=== PATIENT | male | born 1970 | race African-American/Black ===

== ENCOUNTER 2019-02-07 20:21 | Emergency (ER) | payer MEDICARE ==
--- NOTE | 2019-02-07 20:23 | ER Report ---
History and Physical Time Seen By MD: 20:23 HPI/ROS CHIEF COMPLAINT: Fall HISTORY OF PRESENT ILLNESS: Patient is a 48-year-old male here with complaints of right-sided lower extremity pain, right upper extremity pain after falling while getting out of his truck. Patient also complains of feeling lethargic, weak, he also admits to having significant right lower extremity infection which she is on cefepime for currently. There is no obvious bony deformity at time of evaluation however patient complains of severe pain from shoulder to distal extremity, hip to distal extremity. REVIEW OF SYSTEMS: Constitutional: No fever, no chills. Eyes: No discharge. ENT: No sore throat. Cardiovascular: No chest pain, no palpitations. Respiratory: No cough, no shortness of breath. Gastrointestinal: No abdominal pain, no vomiting. Genitourinary: No hematuria. Musculoskeletal: + Right upper extremity and right lower extremity pain without bony deformity, + prior amputation of the left lower external Skin: No rashes. Neurological: No focal neurological deficits Allergies: Coded Allergies: acetaminophen (Verified Allergy, Unknown, 02/07/19) hydrocodone (Verified Allergy, Unknown, 02/07/19) Home Meds Active Scripts Tramadol Hcl (TRAMADOL HCL) 50 Mg Tablet, 50 MG PO Q6H PRN for PAIN, #12 TAB 0 Refills Prov:VIDAL EASON Felisa DO 02/08/19 Reported Medications Clonidine HCl (Clonidine HCl ER) 0.1 Mg Tab.er.12h 02/07/19 Constitutional Vital Sign - Last 24 Hours 02/07/19 02/07/19 20:30 23:00 Temp 97.8 Pulse 86 89 Resp 17 14 B/P (MAP) 161/103 149/100 (116) Pulse Ox 89 88 O2 Delivery Room Air Room Air Physical Exam General Appearance: The patient is alert, has no immediate need for airway protection and no signs of toxicity. + mildly lethargic, oriented Eyes: Pupils equal and round no pallor or injection. ENT, Mouth: Mucous membranes are moist. Respiratory: There are no retractions, lungs are clear to auscultation. Cardiovascular: Regular rate and rhythm. Gastrointestinal: Abdomen is soft and non tender, no masses, bowel sounds normal. Neurological: No focal neurological deficits Skin: Warm and dry, no rashes. Musculoskeletal: Neck is supple non tender. + Prior left lower extremity amputation history, right lower extremity infections present but neurovascularly intact at time of evaluation complaining of tenderness on palpation of the right lower extremity and right upper extremity, no C-spine tenderness on palpation DIFFERENTIAL DIAGNOSIS: After history and physical exam differential diagnosis was considered for fracture, contusion, infection, electrolyte abnormality Medical Decision Making Data Points Result Diagram: 02/07/19212902/07/192129 Laboratory Hematology Test 02/07/19 20:40 02/07/19 21:30 Urine Color Yellow Urine Clarity Clear Urine pH 6.0 pH (4.8-9.5) Urine Specific [place] 1.032 Urine Protein 100 mg/dL (NEGATIVE) Urine Glucose (UA) 500 mg/dL (NEGATIVE) Urine Ketones Trace mg/dL (NEGATIVE) Urine Blood Small (NEGATIVE) Urine Nitrite Negative (NEGATIVE) Urine Bilirubin Negative (NEGATIVE) Urine Urobilinogen 2.0 mg/dL (0.2-1.9) Urine Leukocyte Esterase Negative (NEGATIVE) Urine RBC 14 /HPF (0-2/HPF) Urine WBC 2 /HPF (0-5/HPF) Urine Squamous Epithelial Cells None /LPF (</=FEW) Urine Bacteria Negative /HPF (NONE-FEW) Urine Hyaline Casts Few /LPF (NONE-FEW) Urine Mucus Few /HPF (NONE-FEW) Red Blood Count 4.32 M/uL (4.00-5.60) Mean Corpuscular Volume 86.3 fL (80.0-96.0) Mean Corpuscular Hemoglobin 28.2 pg (26.0-33.0) Mean Corpuscular Hemoglobin Concent 32.7 g/dL (32.0-36.0) Red Cell Distribution Width 15.5 % (11.5-14.5) Mean Platelet Volume 8.0 fL (7.2-11.1) Neutrophils (%) (Auto) 49.7 % (39.4-72.5) Lymphocytes (%) (Auto) 38.9 % (17.6-49.6) Monocytes (%) (Auto) 8.3 % (4.1-12.4) Eosinophils (%) (Auto) 2.4 % (0.4-6.7) Basophils (%) (Auto) 0.7 % (0.3-1.4) Nucleated RBC Relative Count (auto) 0.0 /100WBC Neutrophils # (Auto) 4.4 K/uL (2.0-7.4) Lymphocytes # (Auto) 3.5 K/uL (1.3-3.6) Monocytes # (Auto) 0.7 K/uL (0.3-1.0) Eosinophils # (Auto) 0.2 K/uL (0.0-0.5) Basophils # (Auto) 0.1 K/uL (0.0-0.1) Nucleated RBC Absolute Count (auto) 0.00 K/uL Prothrombin Time 13.7 seconds (12.0-14.4) Prothromb Time International Ratio 1.05 Activated Partial Thromboplast Time 31 seconds (23-35) Sodium Level 138 mmol/L (137-145) Potassium Level 3.0 mmol/L (3.5-5.0) Chloride Level 104 mmol/L (98-107) Carbon Dioxide Level 29 mmol/L (22-30) Blood Urea Nitrogen 14 mg/dl (9-21) Creatinine 0.70 mg/dl (0.66-1.25) Glomerular Filtration Rate Calc > 60.0 Random Glucose 247 mg/dl (75-110) Lactate 1.3 mmol/L (0.7-2.1) Calcium Level 9.4 mg/dl (8.4-10.2) Total Bilirubin 0.2 mg/dl (0.2-1.3) Aspartate Amino Transf (AST/SGOT) 30 U/L (0-35) Alanine Aminotransferase (ALT/SGPT) 30 U/L (0-56) Alkaline Phosphatase 134 U/L (0-126) Total Protein 7.9 g/dl (6.3-8.2) Albumin 3.6 g/dl (3.5-5.0) Lipase 60 U/L (23-300) Serum Alcohol < 10 mg/dl Chemistry Test 02/07/19 20:40 02/07/19 21:30 Urine Color Yellow Urine Clarity Clear Urine pH 6.0 pH (4.8-9.5) Urine Specific [place] 1.032 Urine Protein 100 mg/dL (NEGATIVE) Urine Glucose (UA) 500 mg/dL (NEGATIVE) Urine Ketones Trace mg/dL (NEGATIVE) Urine Blood Small (NEGATIVE) Urine Nitrite Negative (NEGATIVE) Urine Bilirubin Negative (NEGATIVE) Urine Urobilinogen 2.0 mg/dL (0.2-1.9) Urine Leukocyte Esterase Negative (NEGATIVE) Urine RBC 14 /HPF (0-2/HPF) Urine WBC 2 /HPF (0-5/HPF) Urine Squamous Epithelial Cells None /LPF (</=FEW) Urine Bacteria Negative /HPF (NONE-FEW) Urine Hyaline Casts Few /LPF (NONE-FEW) Urine Mucus Few /HPF (NONE-FEW) White Blood Count 8.9 k/uL (4.5-11.0) Red Blood Count 4.32 M/uL (4.00-5.60) Hemoglobin 12.2 g/dL (14.0-18.0) Hematocrit 37.2 % (42.0-52.0) Mean Corpuscular Volume 86.3 fL (80.0-96.0) Mean Corpuscular Hemoglobin 28.2 pg (26.0-33.0) Mean Corpuscular Hemoglobin Concent 32.7 g/dL (32.0-36.0) Red Cell Distribution Width 15.5 % (11.5-14.5) Platelet Count 331 K/uL (150-450) Mean Platelet Volume 8.0 fL (7.2-11.1) Neutrophils (%) (Auto) 49.7 % (39.4-72.5) Lymphocytes (%) (Auto) 38.9 % (17.6-49.6) Monocytes (%) (Auto) 8.3 % (4.1-12.4) Eosinophils (%) (Auto) 2.4 % (0.4-6.7) Basophils (%) (Auto) 0.7 % (0.3-1.4) Nucleated RBC Relative Count (auto) 0.0 /100WBC Neutrophils # (Auto) 4.4 K/uL (2.0-7.4) Lymphocytes # (Auto) 3.5 K/uL (1.3-3.6) Monocytes # (Auto) 0.7 K/uL (0.3-1.0) Eosinophils # (Auto) 0.2 K/uL (0.0-0.5) Basophils # (Auto) 0.1 K/uL (0.0-0.1) Nucleated RBC Absolute Count (auto) 0.00 K/uL Prothrombin Time 13.7 seconds (12.0-14.4) Prothromb Time International Ratio 1.05 Activated Partial Thromboplast Time 31 seconds (23-35) Glomerular Filtration Rate Calc > 60.0 Lactate 1.3 mmol/L (0.7-2.1) Calcium Level 9.4 mg/dl (8.4-10.2) Total Bilirubin 0.2 mg/dl (0.2-1.3) Aspartate Amino Transf (AST/SGOT) 30 U/L (0-35) Alanine Aminotransferase (ALT/SGPT) 30 U/L (0-56) Alkaline Phosphatase 134 U/L (0-126) Total Protein 7.9 g/dl (6.3-8.2) Albumin 3.6 g/dl (3.5-5.0) Lipase 60 U/L (23-300) Serum Alcohol < 10 mg/dl Coagulation Test 02/07/19 21:30 Prothrombin Time 13.7 seconds Prothromb Time International Ratio 1.05 Activated Partial Thromboplast Time 31 seconds Toxicology Test 02/07/19 21:30 Serum Alcohol < 10 mg/dl Urinalysis Test 02/07/19 20:40 Urine Color Yellow Urine Clarity Clear Urine pH 6.0 pH (4.8-9.5) Urine Specific [place] 1.032 Urine Protein 100 mg/dL (NEGATIVE) Urine Glucose (UA) 500 mg/dL (NEGATIVE) Urine Ketones Trace mg/dL (NEGATIVE) Urine Blood Small (NEGATIVE) Urine Nitrite Negative (NEGATIVE) Urine Bilirubin Negative (NEGATIVE) Urine Urobilinogen 2.0 mg/dL (0.2-1.9) Urine Leukocyte Esterase Negative (NEGATIVE) Urine RBC 14 /HPF (0-2/HPF) Urine WBC 2 /HPF (0-5/HPF) Urine Squamous Epithelial Cells None /LPF (</=FEW) Urine Bacteria Negative /HPF (NONE-FEW) Urine Hyaline Casts Few /LPF (NONE-FEW) Urine Mucus Few /HPF (NONE-FEW) EKG/Imaging Imaging PATIENT NAME: Donny Fletcher : 1970 MR: [id number] V: [id number] EXAM DATE: [id number] ORDERING PHYSICIAN: VIDAL EASON TECHNOLOGIST: Location: [facility] Patient: Donny Fletcher : 1970 Visit/Account:[id number] Date of Sevice: 02/07/2019 FOOT 3 VIEWS RIGHT Indication: Fall. Soft tissue infection. Comparison: None Available Findings: 3 views of the right foot were obtained. There has been previous amputation of the toes through the metatarsophalangeal joints. There is a deep soft tissue ulcer identified along the lateral margin of the remaining forefoot. The head of the fifth metatarsal may be exposed at the base of the ulcer. There is bone destruction involving the fifth metatarsal head and neck. There is an associated comminuted fracture involving the neck region. Periosteal new bone seen more proximally along the shaft. Culmination of findings are consistent with fifth metatarsal osteomyelitis. No other areas of bone destruction are seen in the forefoot. No definite soft tissue gas is seen beyond the ulcer margin. There is dorsal soft tissue swelling. There is a plantar ulcer noted as well without evidence of calcaneal osteomyelitis. There i s a heel spur. Ossifications are seen along the dorsum of the talus felt to be sequela of old trauma. IMPRESSION: 1. Deep soft tissue ulcer along the lateral margin of the right forefoot after prior toe amputations. 2. Plain film findings compatible with osteomyelitis involving the right fifth metatarsal head and neck with an associated comminuted fracture. 3. Plantar heel ulcer without definite evidence of calcaneal osteomyelitis. PATIENT NAME: Donny Fletcher : 1970 MR: [id number] V: [id number] EXAM DATE: [id number] ORDERING PHYSICIAN: VIDAL EASON TECHNOLOGIST: Location: [facility] Patient: Donny Fletcher : 1970 Visit/Account:[id number] Date of Sevice: 02/07/2019 TIBIA FIBULA RIGHT Indication: Fall. Comparison: None available Findings: Frontal and lateral views are obtained of the right tibia-fibula on 4 images. No acute fracture or dislocation is identified. 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 There is mild tibiotalar joint osteoarthritis. Ossifications are seen along the lateral margin of the distal tibial shaft likely related to an old syndesmotic injury. Correlate clinically. This is not felt to be an acute finding. There is mild soft tissue swelling about the ankle and there is some reticulation of the subcutaneous tissues extending proximally. No radiopaque foreign body. IMPRESSION: 1. No acute fracture of the right tibia and fibula. 2. Protuberant ossifications/bony excrescence along the lateral margin of the distal shaft of the tibia. This may be sequela of an old syndesmotic injury. Correlate clinically. Alternative diagnosis would include an irregularly-shaped osteochondroma. 3. Mild soft tissue swelling about the ankle. Report Dictated By: Kaiser Mancilla at 02/07/2019 11:06 PM Report E-Signed By: Kaiser Mancilla at 02/07/2019 11:10 PM WSN:[id number] ED Course/Re-evaluation ED Course Patient is a 48-year-old male here with complaints of right upper and right lower extremity pain after a fall while getting out of the truck. X-ray imaging was ordered of the right upper and right lower extremities. Patient did seen lethargic and denied hitting his head however due to his presentation, CT imag ing of the head was completed. X-ray imaging showed no acute intracranial pathology, upper extremity showed no fractures, lower extremity showed a fracture of the 5th metatarsal with possible osteomyelitis however the patient is currently being treated with cefepime and has a walking boot so no acute changes and management recommended at this time. Since the patient is clearly being followed by an orthopedic doctor based on prior amputations of the distal digits of the lower extremity, left lower extremity amputation, patient was given a disc of imaging to bring with him in order to compared to prior imaging studies as we do not have a baseline to compare to. It seems like many of his radiographic findings and complaints as well as ulcers of the extremity have been chronic in nature and insidious. Recommend close follow-up with his orthopedic doctor as well as his primary care physician in order to discuss possible need for further amputation of his right lower extremity. Patient's lab s were unremarkable, there is no leukocytosis, he did have elevated glucose levels which seemed to not be under control for an extended period of time. Many of his current complaints are likely sequela of his poorly controlled diabetes. Return precautions provided. Decision to Disposition Date: Feb 08, 2019 Decision to Disposition Time: 00:03 Depart Departure Latest Vital Signs Vital Signs Date Time Temp Pulse Resp B/P (MAP) Pulse Ox O2 Delivery O2 Flow Rate FiO2 02/07/19 23:00 89 14 149/100 (116) 88 Room Air 02/07/19 20:30 97.8 Impression: Primary Impression: Fall Additional Impressions: Hyperglycemia Osteomyelitis Fracture of 5th metatarsal Condition: Improved Disposition: HOME OR SELF-CARE New Scripts Tramadol Hcl (TRAMADOL HCL) 50 Mg Tablet 50 MG PO Q6H PRN for PAIN, #12 TAB 0 Refills Prov: VIDAL EASON DO 02/08/19 Patient Instructions: Osteomyelitis (ED), Toe Fracture (ED) Additional Instructions: Please continue all of your medications as prescribed, including your antimicrobial treatment. Please follow-up in the next 24-48 hours with your primary care doctor and make an appointment with your orthopedic surgeon to discuss possible need for further amputation of the right distal extremity. Your x-ray imaging was consistent with osteomyelitis and a fracture of the right 5th toe. Your glucose levels were not well controlled at this time and you may exp ect a progression of your peripheral vascular disease and further organ damage if your glucose levels remain uncontrolled. Please take this disc of imaging to your doctor to compared to prior imaging results as we do not have baseline imaging to compare to. Please return immediately if you develop fevers, increased lethargy, worsening pain, rash. Problem Qualifiers VIDAL EASON DO Feb 07, 2019 20:23
[2019-02-07] MEDS ORDERED: DIPHTH/TETANUS/ACEL. PERTUSSIS IM ONE (20:25)
[2019-02-07] MEDS ORDERED: CLON0.1T14 (20:50)
[2019-02-07] MEDS ORDERED: fentaNYL CITR 100 MCG/2 ML AMP IVP ONE (21:25)
[2019-02-07 21:47] LABS: INR 1.05; PLATELET COUNT, AUTOMATED 331 K/uL (150-450)
--- NOTE | 2019-02-07 23:13 | RADIOLOGY IMAGING REPORT ---
FACILITY: [facility] [place] PATIENT NAME: Donny Fletcher : 1970 MR: [id number] V: [id number] EXAM DATE: ORDERING PHYSICIAN: VIDAL EASON TECHNOLOGIST: Location: [facility] [place] Patient: Donny Fletcher : 1970 Visit/Account:[id number] Date of Sevice: 02/07/2019 TIBIA FIBULA RIGHT Indication: Fall. Comparison: None available Findings: Frontal and lateral views are obtained of the right tibia-fibula on 4 images. No acute fracture or di slocation is identified. 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 There is mild tibiot alar joint osteoarthritis. Ossifications are seen along the lateral margin of the distal tibial shaft likely related to an old syndesmotic injury. Correlate clinically. This is not felt to be an acute f inding. There is mild soft tissue swelling about the ankle and there is some reticulation of the subc utaneous tissues extending proximally. No radiopaque foreign body. IMPRESSION: 1. No acute fracture of the right tibia and fibula. 2. Protuberant ossifications/bony excrescence along the lateral margin of the distal shaft of the tib ia. This may be sequela of an old syndesmotic injury. Correlate clinically. Alternative diagnosis wou ld include an irregularly-shaped osteochondroma. 3. Mild soft tissue swelling about the ankle. Report Dictated By: Kaiser Mancilla at 02/07/2019 11:06 PM Report E-Signed By: Kaiser Mancilla at 02/07/2019 11:10 PM WSN:[id number]
--- NOTE | 2019-02-07 23:21 | RADIOLOGY IMAGING REPORT ---
FACILITY: [facility] PATIENT NAME: Donny Fletcher : 1970 MR: [id number] V: [id number] EXAM DATE: ORDERING PHYSICIAN: VIDAL EASON TECHNOLOGIST: [place] [facility] [place]ny [place] : 1970 Visit/Account:[id number] Date of Sevice: 02/07/2019 FOOT 3 VIEWS RIGHT Indication: Fall. Soft tissue infection. Comparison: None Available Findings: 3 views of the right foot were obtained. There has been previous amputation of the toes through the metatarsophalangeal joints. There is a li p soft tissue ulcer identified along the lateral margin of the remaining forefoot. The head of the fi fth metatarsal may be exposed at the base of the ulcer. There is bone destruction involving the fifth metatarsal head and neck. There is an associated comminuted fracture involving the neck region. Svitlana osteal new bone seen more proximally along the shaft. Culmination of findings are consistent with fif th metatarsal osteomyelitis. No other areas of bone destruction are seen in the forefoot. No definite soft tissue gas is seen beyond the ulcer margin. There is dorsal soft tissue swelling. There is a pl natividad ulcer noted as well without evidence of calcaneal osteomyelitis. There is a heel spur. Ossifica tions are seen along the dorsum of the talus felt to be sequela of old trauma. IMPRESSION: 1. Deep soft tissue ulcer along the lateral margin of the right forefoot after prior toe amputations. 2. Plain film findings compatible with osteomyelitis involving the right fifth metatarsal head and ne ck with an associated comminuted fracture. 3. Plantar heel ulcer without definite evidence of calcaneal osteomyelitis. Report Dictated By: Kaiser Mancilla at 02/07/2019 11:13 PM Report E-Signed By: Kaiser Mancilla at 02/07/2019 11:17 PM WSN:[id number]
[2019-02-08] MEDS ORDERED: TRAM-420 PO (00:08)
[2019-02-08] MEDS ORDERED: oxyCODONE HCL 5 MG CAP PO ONE (00:10)
[2019-02-08 00:58] VITALS: BP 150/108
--- NOTE | 2019-02-08 13:04 | RADIOLOGY IMAGING REPORT ---
[place] [facility] [place]IENT NAME: Donny Fletcher : 1970 MR: [id number] V: [id number] EXAM DATE: ORDERING PHYSICIAN: VIDAL EASON TECHNOLOGIST: Location: [facility] Patient: Donny Fletcher : 1970 Visit/Account:[id number] Date of Sevice: 02/07/2019 HIP RIGHT Indication: Fall. Pain. Comparison: None available Findings: Frontal view of the pelvis and a frog-leg lateral view are obtained of the right hip. No acute fracture deformity is seen. Right hip joint space is appropriately aligned. There are minima l changes of bilateral hip joint osteoarthritis. Pubic symphysis and sacroiliac joints appear normall y aligned. IMPRESSION: 1. No acute fracture or dislocation at the right hip. Report Dictated By: Kaiser Mancilla at 02/07/2019 11:00 PM Report E-Signed By: Kaiser Mancilla at 02/07/2019 11:02 PM WSN:[id number]
--- NOTE | 2019-02-08 13:04 | RADIOLOGY IMAGING REPORT ---
[place] [facility] [place]: Donny Fletcher : 1970 MR: [id number] V: [id number] EXAM DATE: ORDERING PHYSICIAN: VIDAL EASON TECHNOLOGIST: Location: [facility] [place] Patient: Donny Fletcher : 1970 Visit/Account:[id number] Date of Sevice: 02/07/2019 FEMUR RIGHT Indication: Fall. Comparison: None available Findings: Frontal and lateral views are obtained of the right femur on a total of 4 images. No acute fracture deformity is identified. Minimal changes of osteoarthritis are seen at the right hi p. There is mild decrease in offset at the femoral head and neck junction which can predispose to fem oral acetabular impingement. Correlate clinically. There are changes of osteoarthritis seen at the ri ght knee. No joint effusion. IMPRESSION: 1. No acute fracture of the right femur. 2. Slight decrease in offset at the right femoral head and neck junction. This finding can predispose to femoral acetabular impingement. Report Dictated By: Kaiser Mancilla at 02/07/2019 11:02 PM Report E-Signed By: Kaiser Mancilla at 02/07/2019 11:04 PM WSN:[id number]
--- NOTE | 2019-02-08 13:05 | RADIOLOGY IMAGING REPORT ---
[place] [facility] [place] Donny Fletcher : 1970 MR: [id number] V: [id number] EXAM DATE: ORDERING PHYSICIAN: VIDAL EASON TECHNOLOGIST: Location: [facility] [place] Patient: Donny Fletcher : 1970 Visit/Account:[id number] Date of Sevice: 02/07/2019 HUMERUS RIGHT Indication: Fall. Pain. Comparison: None Available FINDINGS: 2 views of the right humerus are obtained. No fracture is identified. No acute osseous abnormality is seen. No focal soft tissue abnormality. IMPRESSION: 1. Normal two-view exam of the right humerus. Report Dictated By: Kaiser Mancilla at 02/07/2019 10:57 PM Report E-Signed By: Kaiser Mancilla at 02/07/2019 10:58 PM WSN:[id number]
--- NOTE | 2019-02-08 13:05 | RADIOLOGY IMAGING REPORT ---
[place] [facility] [place] NAME: Donny Fletcher : 1970 MR: [id number] V: [id number] EXAM DATE: [id number] ORDERING PHYSICIAN: VIDAL EASON TECHNOLOGIST: [place] [facility] [place]ny [place] : 1970 Visit/Account:[id number] Date of Sevice: 02/07/2019 SHOULDER MIN 2 VIEWS RIGHT Indication: Fall. Shoulder pain. Comparison: Unavailable Findings: 2 views of the right shoulder are submitted. No fracture or dislocation is seen on this two-view study. The glenohumeral and acromioclavicular joints appear unremarkable. No acute osseous or joint centered abnormality is seen. A left-sided central venous catheter is in place but is incompletely evaluated. IMPRESSION: 1. No fracture or dislocation of the right shoulder on this two-view exam. Report Dictated By: Kaiser Mancilla at 02/07/2019 10:55 PM Report E-Signed By: Kaiser Mancilla at 02/07/2019 10:57 PM WSN:[id number]
--- NOTE | 2019-02-08 13:06 | RADIOLOGY IMAGING REPORT ---
FACILITY: [facility] [place] PATIENT NAME: Donny Fletcher : 1970 MR: [id number] V: [id number] EXAM DATE: ORDERING PHYSICIAN: VIDAL EASON TECHNOLOGIST: [place] [facility] [place]: Donny Fletcher : 1970 Visit/Account:[id number] Date of Sevice: 02/07/2019 FOREARM RIGHT Indication: Fall. Abrasion. Comparison: None available Findings: Frontal and lateral views of the right forearm are obtained. No acute fracture is seen. No acute osseous abnormality is identified. No soft tissue abnormality. IMPRESSION: 1.No acute osseous abnormality right forearm Report Dictated By: Kaiser Mancilla at 02/07/2019 10:58 PM Report E-Signed By: Kaiser Mancilla at 02/07/2019 11:00 PM WSN:[id number]
--- NOTE | 2019-02-08 13:08 | RADIOLOGY IMAGING REPORT ---
FACILITY: [facility] PATIENT NAME: Donny Fletcher : 1970 MR: [id number] V: [id number] EXAM DATE: ORDERING PHYSICIAN: VIDAL EASON TECHNOLOGIST: Location: [facility] [place] Patient: Donny Fletcher : 1970 Visit/Account:[id number] Date of Sevice: 02/07/2019 2 views right ankle INDICATION: Fall. COMPARISON: None Available FINDINGS: Frontal and lateral views are obtained of the right ankle. No acute fracture or dislocation is seen o n this two-view study. Protuberant ossifications arise from the lateral margin of the distal shaft of the tibia. This may be related to an old syndesmotic injury. This could be related to an osteochondr toyin. Correlate clinically. There are changes of osteoarthritis at the tibiotalar joint which are mild . There is an os trigonum. There is a heel spur. Several corticated ossifications are seen along the dorsum of the distal talus likely related to an old injury/avulsion fracture. On the lateral view, a soft tissue ulcer is seen along the plantar margin of the heel. No evidence to suggest underlying susy caneal osteomyelitis. IMPRESSION: 1. No acute fracture or dislocation at the right ankle after fall. 2. Soft tissue swelling about the ankle. 3. Findings most consistent with a plantar heel ulcer. Correlate clinically. No radiographic evidence of osteomyelitis. Report Dictated By: Kaiser Mancilla at 02/07/2019 11:10 PM Report E-Signed By: Kaiser Mancilla at 02/07/2019 11:13 PM WSN:[id number]
--- NOTE | 2019-02-08 13:08 | RADIOLOGY IMAGING REPORT ---
FACILITY: [facility] PATIENT NAME: Donny Fletcher : 1970 MR: [id number] V: [id number] EXAM DATE: ORDERING PHYSICIAN: VIDAL EASON TECHNOLOGIST: Location: [facility] - [place] Patient: Donny Fletcher : 1970 Visit/Account:[id number] Date of Sevice: 02/07/2019 HEAD W/O CONTRAST HISTORY: Fell. Abrasions and infection to right lower extremity. Diabetic. COMPARISON: None. TECHNIQUE: Axial images were obtained from the skull base to the vertex without contrast. Sagittal an d coronal reformats were performed. One of the following dose optimization techniques was utilized in the performance of this exam: Autom ated exposure control; adjustment of the mA and/or kV according to the patient's size; or use of an i terative reconstruction technique. Specific details can be referenced in the facility's radiology CT exam operational policy. CONTRAST: None. FINDINGS: Brain: No intracranial hemorrhage, mass, or edema. There are nonspecific periventricular, subcortical , and deep white matter low attenuation foci, mild in severity. There are old lacunar infarcts in the bilateral basal ganglia, right greater than left. There is mild calcification of the internal caroti d arteries. Sulci, ventricles, and cisterns: Sulci are prominent, compatible with mild atrophy, normal for age. T here is compensatory dilation of the ventricles. The basilar cisterns are patent. Osseous structures: Intact. 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 Paranasal sinuses and mastoids: There is mild mucosal thickening of the maxillary sinuses. There are tiny mucous retention pseudocysts within the left ethmoid sinus. Slight leftward nasal septal bowing. Mastoids are clear. Orbits and soft tissues: Orbits are normal. There are numerous punctate calcifications within the sca lp. IMPRESSION: 1. No acute intracranial abnormality. 2. Nonspecific white matter changes are most likely due to chronic microvascular ischemic change, mil d in severity. 3. Old lacunar infarcts in the bilateral basal ganglia. Report Dictated By: Maria M Cornelius at 02/07/2019 11:29 PM Report E-Signed By: Maria M Cornelius at 02/07/2019 11:42 PM WSN:[id number]
--- NOTE | 2019-02-08 13:09 | RADIOLOGY IMAGING REPORT ---
FACILITY: [facility] - [place] PATIENT NAME: Donny Fletcher : 1970 MR: [id number] V: [id number] EXAM DATE: ORDERING PHYSICIAN: VIDAL EASON TECHNOLOGIST: Location: [facility] - [place] Patient: Donny Fletcher : 1970 Visit/Account:[id number] Date of Sevice: 02/07/2019 KNEE 3 VIEW RIGHT Indication: Fall. Knee pain. Comparison: None available Findings: 3 views right knee were obtained. No acute fracture or dislocation is identified. Moderate severity 3 compartment osteoarthritis is seen. Joint space narrowing is most pronounced on t his nonweightbearing study in the medial compartment. No joint effusion. No evidence of radiopaque foreign body. IMPRESSION: 1. No acute fracture or dislocation at the right knee. 2. 3 compartment osteoarthritis of moderate severity. Report Dictated By: Kaiser Mancilla at 02/07/2019 11:05 PM Report E-Signed By: Kaiser Mancilla at 02/07/2019 11:06 PM WSN:[id number]
== END 2019-02-08 01:00 | disposition home or self-care (01) ==
LOC: ER 20:28
DX: E11.65 Type 2 diabetes mellitus with hyperglycemia (principal); M86.9 Osteomyelitis, unspecified; S92.351A Displaced fracture of fifth metatarsal bone, right foot, initial encounter for closed fracture; W01.0XXA Fall on same level from slipping, tripping and stumbling without subsequent striking against object, initial encounter; Z91.81 History of falling
CPT/HCPCS: 36415; 70450; 73030; 73060; 73090; 73502; 73552; 73562; 73590; 73600; 73630; 81001; 83605; 83690; 85025; 85610; 85730; 90471; 90715; 96374; 99284; A9270; G0480; J3010; 80320; 82040; 82247; 82310; 82374; 82435; 82565; 82947; 84075; 84132; 84155; 84295; 84450; 84460; 84520

== ENCOUNTER → 2019-02-07 | Outpatient (CLI) | payer MEDICARE ==
[~2019-02-07] MED LIST: CLON0.1T14; TRAM-420 PO
== END ==
LOC: AMB 19:57
PROVIDERS: ATTEND Nurse Practitioner
DX: M79.671 Pain in right foot (principal); M79.601 Pain in right arm; W00.0XXA Fall on same level due to ice and snow, initial encounter
CPT/HCPCS: A0425; A0429